=== PATIENT | female | born 1970 | race Caucasian/White ===

== ENCOUNTER 2020-11-10 13:59 | Emergency (ER) | payer MEDICAID ==
[~2020-11-10] VITALS: Ht 162.6 cm; Wt 83.9 kg
[~2020-11-10 13:59] MED LIST: [UNRECOGNIZED DRUG - REMARK] PO
[2020-11-10 14:05] VITALS: BP 117/77
--- NOTE | 2020-11-10 14:24 | NUR ---
RAD AT BEDSIDE
[2020-11-10] MEDS: KETOROLAC 30 MG/ML VIAL IM ONE (14:47)
--- NOTE | 2020-11-10 14:48 | NUR ---
50 Y/O FEMALE BIB SELF C/O KNEE PAIN RELATED TO FALL X TODAY. PAIN 8/10, LOCAL, CONTINUOUS, DULL. PT STATES SHE FELT KNEE "POP" POST FALL. LIMITED ROM NOTED, SENSATION INTACT. SKIN INTACT, NO APPARENT OPEN WOUND, NO DRAINGAE, SOME SWELLING NOTED, SKIN NORMAL COLOR, NORMAL TEMPERATURE. AO4, BREATHING EVEN AND UNLABORED, SKIN WARM AND DRY. BED IN LOWEST POSITION, LOCKED, X1 SIDERAIL UP. PMH - DENIED NKA
[2020-11-10] MEDS: IBUPROFEN 600 MG TAB PO ONE (15:03)
[2020-11-10] MEDS ORDERED: IBUP-2213 PO (15:05)
--- NOTE | 2020-11-10 15:35 | NUR ---
Patient discharged with v/s stable. Written and verbal after care instructions given and explained IN [place]. Patient alert, oriented and verbalized understanding of instructions. Ambulatory with steady gait. All questions addressed prior to discharge. ID band removed. Patient advised to follow up with PMD. Rx of IBUPROFEN given. Patient educated on indication of medication including possible reaction and side effects. Opportunity to ask questions provided and answered.
--- NOTE | 2020-11-10 15:37 | NUR ---
PT PLACED IN RIGHT KNEE IMMOBILIZOR. PT GIVEN CRUTCHES AND ALSO GIVEN ONE ON ONE INSTRUCTIONS ON HOW TO PROPERLY USE CRUTCHES. CRUTCHES ADJUSTED TO PT HEIGHT AND SIZE, PT STATES THEY FEEL COMFORTABLE WHILE USING CRUTCHES AND SHOWED PROPER DEMONSTRATION ON HOW TO USE THEM.
[2020-11-10 15:44] VITALS: BP 117/77
== END 2020-11-10 15:35 | disposition home or self-care (01) ==
LOC: MED 13:59
DX: S76.911A Strain of unspecified muscles, fascia and tendons at thigh level, right thigh, initial encounter (principal); W18.39XA Other fall on same level, initial encounter; Y93.89 Activity, other specified; Y92.89 Other specified places as the place of occurrence of the external cause; Y99.8 Other external cause status
CPT/HCPCS: 29505; 73562; 99283

== ENCOUNTER 2021-09-01 12:20 | Emergency (ER) | payer MEDICAID ==
[~2021-09-01] VITALS: Ht 165.1 cm; Wt 86.2 kg
[~2021-09-01 12:20] MED LIST changes: +IBUP-2213 PO
[2021-09-01 13:29] VITALS: BP 122/78
[2021-09-01] MEDS: ACETAMINOPHEN EXTRA STRENGTH 500 MG TAB PO ONE (14:08)
[2021-09-01] MEDS: NACL 0.9% 1,000 ML IV ONE (14:12)
[2021-09-01 14:39] LABS: BASOPHILS % (AUTO) 0.4 % (0.0-2.0); EOSINOPHILS # (AUTO) 0.1 K/uL (0-0.4); HEMATOCRIT 35.1 % (36-48); HEMOGLOBIN 11.9 g/dL (12.0-16.0); LYMPHOCYTES # (AUTO) 1.4 K/uL (2.5-16.5); LYMPHOCYTES % (AUTO) 19.8 % (20.5-51.1); MEAN CORPUSCULAR HEMOGLOBIN 30 pg (27-31); MEAN CORPUSCULAR HGB CONC 34 g/dL (33-37); MEAN CORPUSCULAR VOLUME 89.6 fL (80-94); MONOCYTES # (AUTO) 0.5 K/uL (0.8-1.0); MONOCYTES % (AUTO) 7.5 % (1.7-9.3); NEUTROPHILS % (AUTO) 71.3 % (42.2-75.2); PLATELET COUNT (AUTO) 368 K/uL (140-450); RED BLOOD CELL COUNT(AUTO) 3.92 MIL/uL (4.20-5.40); RED CELL DISTRIBUTION WIDTH 14.3 % (11.6-13.7); WHITE BLOOD COUNT (AUTO) 7.1 K/uL (4.8-10.8)
--- NOTE | 2021-09-01 15:03 | NUR ---
PT C/O COUGH AND DIZZINESS X2 DAYS. IV INSERTED TO RIGHT AC #[id number], FLUIDS INFUSING PER ORDER. NAD. SAFETY MAINTAINED.
[2021-09-01 15:04] LABS: ALBUMIN 3.4 g/dL (3.4-5.0); ANION GAP 10.8 (8-16); CARBON DIOXIDE 27.8 mmol/L (21-32); CREATININE 0.7 mg/dL (0.6-1.3); POTASSIUM 3.6 mmol/L (3.5-5.1); TOTAL BILIRUBIN 0.2 mg/dL (0.0-1.0)
[2021-09-01] MEDS ORDERED: ALBU0.0912 IH (15:46)
[2021-09-01] MEDS ORDERED: PROM118S5 PO (15:46)
[2021-09-01] MEDS ORDERED: NAPR-54 PO (15:46)
[2021-09-01 15:55] VITALS: BP 105/67
--- NOTE | 2021-09-01 15:56 | NUR ---
Patient discharged with v/s stable. Written and verbal after care instructions given and explained. Patient alert, oriented and verbalized understanding of instructions. Ambulatory with steady gait. All questions addressed prior to discharge. ID band removed. Patient advised to follow up with PMD. Rx of naproxe, albuterol inh given. Patient educated on indication of medication including possible reaction and side effects. Opportunity to ask questions provided and answered.
--- NOTE | 2021-09-06 12:53 | NUR ---
LATE ENTRY- IV NORMAL SALINE DISCONTINUED AT 1556.
== END 2021-09-01 15:56 | disposition home or self-care (01) ==
LOC: MED 12:20
DX: B34.9 Viral infection, unspecified (principal); Z20.822 Contact with and (suspected) exposure to COVID-19; Z79.899 Other long term (current) drug therapy
CPT/HCPCS: 36415; 80053; 81025; 85025; 87426; 96360; 96361; 99283; J7030